=== PATIENT | female | born 1985 | race Caucasian/White ===

== ENCOUNTER 2017-04-25 15:57 | Emergency (ER) | payer MEDICAID ==
[~2017-04-25] VITALS: Ht 160 cm; Wt 65.5 kg
[~2017-04-25 15:57] MED LIST: FERR325C PO; PRENAT PO
[2017-04-25 15:59] VITALS: Ht 160 cm; Wt 65.5 kg
[2017-04-25] MEDS ORDERED: HYDROCODONE/APAP (5/325) TAB PO ONE (17:30)
[2017-04-25] MEDS ORDERED: IBUPROFEN 600 MG TAB PO ONE (17:30)
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
[2017-04-25] MEDS ORDERED: HYDR-906 PO (17:56)
[2017-04-25] MEDS ORDERED: IBUP-1542 PO (17:56)
[2017-04-25] MEDS ORDERED: BACL10TA PO (17:56)
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
== END 2017-04-25 19:24 | disposition home or self-care (01) ==
LOC: FTE 15:57
DX: M62.838 Other muscle spasm (principal); M25.551 Pain in right hip
CPT/HCPCS: 72040; 72170; Z7502; Z7610